=== PATIENT | female | born 1990 | race Caucasian/White ===

== ENCOUNTER 2022-04-27 15:27 | Emergency (ER) | payer OTHER ==
[2022-04-27 17:14] LABS: SARS-COV-2 RT PCR NEGATIVE (NEGATIVE)
--- NOTE | 2022-04-27 18:40 | RAD REPORT ---
EXAM DESCRIPTION: RAD - Chest Pa And Lat (2 Views) - 04/27/2022 6:13 pm CLINICAL HISTORY: COUGH COMPARISON: No comparisons FINDINGS: Lines: None. Lungs: No evidence of edema or pneumonia. Pleural: No significant pleural effusions or pneumothorax. Cardiac: The heart size is within normal limits. Mediastinum: Within normal limits. Bones: No acute fractures. Other: None IMPRESSION: No acute cardiopulmonary disease.
[2022-04-27] MEDS ORDERED: IPRATROPIUM BROM 0.5MG/2.5ML ONE (19:36)
[2022-04-27] MEDS ORDERED: ALBUTEROL 2.5 MG/3 ML NEB SOL ONE (19:36)
[2022-04-27] MEDS ORDERED: HYDROCODONE/CHLORPHEN 5 ML/OSYR ONE (19:37)
--- NOTE | 2022-04-27 19:41 | EDPHYS ---
Physician Documentation [facility] Name: Cady Peters Age: 31 yrs Sex: Female : 1990 Arrival Date: 04/27/2022 Time: 15:29 Bed DIS1 Private MD: ED Physician Beltran Abraham HPI: 04/27 16:15 This 31 yrs old Female presents to ER via Ambulatory with complaints of Cough, cp Congestion, Breathing Difficulty. 16:15 The patient or guardian reports cough, that is constant, difficulty breathing, flu cp symptoms, low-grade fever, body aches. Onset: The symptoms/episode began/occurred yesterday. Severity of symptoms: in the emergency department the symptoms are unchanged, despite home interventions. Associated signs and symptoms: Pertinent positives: fever, nausea, vomiting, Pertinent negatives: diarrhea. 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 - Social history:: Smoking status: Patient denies any tobacco usage or history of. Patient/guardian denies using alcohol. ROS: 16:20 Constitutional: Positive for body aches, chills, fever, Negative for poor PO intake. cp 16:20 Eyes: Negative for injury, pain, redness, and discharge. cp 16:20 ENT: Positive for ear pain, rhinorrhea, sore throat, Negative for drainage from ear(s), difficulty swallowing, difficulty handling secretions. 16:20 Neck: Negative for stiffness. 16:20 Cardiovascular: Negative for chest pain. 16:20 Respiratory: Positive for cough, "sounds productive", shortness of breath, at rest. 16:20 Abdomen/GI: Positive for nausea, vomiting, Negative for diarrhea, constipation. 16:20 Neuro: Positive for headache, Negative for altered mental status, dizziness, syncope, weakness. 16:20 All other systems are negative. Exam: 16:25 Constitutional: The patient appears in no acute distress, alert, awake, non-toxic, well cp developed, well nourished, obviously ill. 16:25 Head/Face: Normocephalic, atraumatic. cp 16:25 Eyes: Periorbital structures: appear normal, Conjunctiva: normal, no exudate, no injection, Lids and lashes: appear normal, bilaterally. 16:25 ENT: External ear(s): are unremarkable, Ear canal(s): are normal, clear, TM's: bulging, is not appreciated, bilaterally, erythema, is not appreciated, bilaterally, Nose: nasal drainage, that is minimal, Mouth: Lips: moist, Oral mucosa: moist, Posterior pharynx: Airway: no evidence of obstruction, patent, Tonsils: with erythema, no enlargement, no exudate, erythema, that is moderate, exudate, is not appreciated. 16:25 Neck: ROM/movement: is normal, is supple, without pain, no range of motions limitations, no meningismus. 16:25 Chest/axilla: Inspection: normal. 16:25 Cardiovascular: Rate: tachycardic, Rhythm: regular. 16:25 Respiratory: the patient does not display signs of respiratory distress, Respirations: normal, no use of accessory muscles, no retractions, labored breathing, is not present, Breath sounds: decreased breath sounds, are not appreciated, stridor, is not appreciated, + upper airway congestion. wheezing: is not appreciated. 16:25 Abdomen/GI: Exam negative for discomfort, distension, guarding, Inspection: abdomen appears normal. 16:25 Skin: no rash present. Vital Signs: 16:02 BP 123 / 62; Pulse 105; Resp 18; Temp 99.4(O); Pulse Ox 98% on R/A; Weight 97.52 kg; ld1 Height 5 ft. 4 in. (162.56 cm); Pain 6/10; 20:10 Temp 100.9(O); as6 16:02 Body Mass Index 36.90 (97.52 kg, 162.56 cm) ld1 MDM: 16:09 Patient medically screened. cp 16:30 Differential Diagnosis: Bronchitis Influenza Sinusitis Otitis Media Viral Syndrome cp Pneumonia. 19:45 Data reviewed: vital signs, nurses notes, lab test result(s), radiologic studies, plain cp films. Test interpretation: by ED physician or midlevel provider: chest xray negative for infiltrates. Counseling: I had a detailed discussion with the patient and/or guardian regarding: the historical points, exam findings, and any diagnostic results supporting the discharge/admit diagnosis, lab results, radiology results, to return to the emergency department if symptoms worsen or persist or if there are any questions or concerns that arise at home. Response to treatment: the patient's symptoms have mildly improved after treatment, and as a result, I will discharge patient. ED course: VSS. Patient appears non-toxic and no signs of respiratory distress. Will discharge to home for continued monitoring. 04/27 16:08 Order name: COVID-19/FLU A+B/RSV; Complete Time: 18:11 cp 04/27 18:11 Interpretation: INFLUENZA A POSITIVE; Reviewed. 04/27 16:08 Order name: Strep; Complete Time: 18:11 04/27 16:08 Order name: XRAY Chest Pa And Lat (2 Views); Complete Time: 18:41 04/27 18:41 Interpretation: Report reviewed. 04/27 17:13 Order name: Throat Culture EDTN 04/27 16:08 Order name: Urine Dipstick-Ancillary (obtain specimen) 04/27 16:08 Order name: Urine Test (obtain specimen) cp Administered Medications: 19:45 Drug: Tussionex Pennkinetic ER (chlorpheniramine-hydrocodone) Suspension 5 ml Route: PO;as6 20:09 Follow up: Response: No adverse reaction as6 19:45 Drug: Albuterol 2.5 mg Route: Inhalation; as6 20:09 Follow up: Response: No adverse reaction as6 19:45 Drug: AtroVENT (ipratropium) Aerosol 0.5 mg Route: Inhalation; as6 20:09 Follow up: Response: No adverse reaction as6 19:59 Drug: Motrin (ibuprofen) 600 mg Route: PO; as6 20:09 Follow up: Response: No adverse reaction as6 Disposition Summary: 04/27/22 19:40 Discharge Ordered Location: Home cp Problem: new cp Symptoms: have improved cp Condition: Stable cp Diagnosis - Influenza due to identified novel influenza A virus with other respiratory cp manifestations Followup: cp - With: Private Physician - When: 2 - 3 days - Reason: Worsening of condition Discharge Instructions: - Discharge Summary Sheet cp - Influenza, Adult cp Forms: - Medication Reconciliation Form cp - Thank You Letter cp - Antibiotic Education cp - Prescription Opioid Use cp Prescriptions: - Bromfed DM 2-30-10 mg/5 mL Oral syrup - take 10 milliliter by ORAL route every 6 hours; 180 milliliter; Refills: 0, cp Product Selection Permitted - albuterol sulfate 90 mcg/actuation Inhalation HFA aerosol inhaler - inhale 1 puff by INHALATION route every 4-6 hours; 1 Inhaler; Refills: 0, cp Product Selection Permitted - Ibuprofen 800 mg Oral Tablet - take 1 tablet by ORAL route every 8 hours As needed take with food; 30 tablet; cp Refills: 0, Product Selection Permitted - Tamiflu 75 mg Oral Capsule - take 1 tablet by ORAL route every 12 hours for 5 days; 10 tablet; Refills: 0, cp Product Selection Permitted Signatures: Dispatcher [employer] EDMS Beltran Villar PA PA cp Dibbern, Lauren, RN RN ld1 Dao Renteria RN RN as6 Corrections: (The following items were deleted from the chart) 18:11 18:11 Reviewed. cp cp
--- NOTE | 2022-04-27 19:41 | ER ---
Nurse's Notes [facility] Name: Cady Peters Age: 31 yrs Sex: Female : 1990 Arrival Date: 04/27/2022 Time: 15:29 Bed DIS1 Private MD: Diagnosis: Influenza due to identified novel influenza A virus with other respiratory manifestations Presentation: 04/27 16:00 Chief complaint: Patient states: Cough and fever X 1 day. N/V/D. Coronavirus screen: ld1 Client presents with at least one sign or symptom that may indicate coronavirus-19. Standard/surgical mask placed on the client. Ebola Screen: No symptoms or risks identified at this time. Initial Sepsis Screen: Does the patient meet any 2 criteria? No. Patient's initial sepsis screen is negative. Does the patient have a suspected source of infection? No. Patient's initial sepsis screen is negative. Risk Assessment: Do you want to hurt yourself or someone else? Patient reports no desire to harm self or others. Onset of symptoms was April 27, 2022. 16:00 Method Of Arrival: Ambulatory ld1 16:00 Acuity: LAUREN 3 ld1 Triage Assessment: 16:02 General: Appears in no apparent distress. comfortable, Behavior is calm, cooperative, ld1 appropriate for age. Pain: Denies pain. EENT: No signs and/or symptoms were reported regarding the EENT system. Neuro: Level of Consciousness is awake, alert, obeys commands, Oriented to person, place, time, situation. Cardiovascular: Capillary refill < 3 seconds Patient's skin is warm and dry. Respiratory: Airway is patent Respiratory effort is even, unlabored, Breath sounds are clear bilaterally. GI: Abdomen is flat, non-distended. : No signs and/or symptoms were reported regarding the genitourinary system. Derm: No signs and/or symptoms reported regarding the dermatologic system. Musculoskeletal: No signs and/or symptoms reported regarding the musculoskeletal system. 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 - Social history:: Smoking status: Patient denies any tobacco usage or history of. Patient/guardian denies using alcohol. Screenin:10 [facility] ED Fall Risk Assessment (Adult) Score/Fall Risk Level 0 - 2 = Low Risk. Abuse as6 screen: Denies threats or abuse. Denies injuries from another. Nutritional screening: No deficits noted. Tuberculosis screening: No symptoms or risk factors identified. Assessment: 20:11 General: pt states "I am already feeling better after that breathing treatment". as6 Vital Signs: 16:02 BP 123 / 62; Pulse 105; Resp 18; Temp 99.4(O); Pulse Ox 98% on R/A; Weight 97.52 kg; ld1 Height 5 ft. 4 in. (162.56 cm); Pain 6/10; 20:10 Temp 100.9(O); as6 16:02 Body Mass Index 36.90 (97.52 kg, 162.56 cm) ld1 ED Course: 15:29 Patient arrived in ED. mr 15:31 Beltran Villar PA is PHCP. cp 15:31 Beltran Abraham MD is Attending Physician. cp 16:02 Triage completed. ld1 16:02 Arm band placed on right wrist. ld1 16:30 Radiology exam delayed due to pt went outside for a drink. az 18:13 XRAY Chest Pa And Lat (2 Views) In Process Unspecified. EDMS 18:14 X-ray completed. Patient tolerated procedure well. Patient taken to [facility]. md2 19:32 Dao Renteria, RN is Primary Nurse. as6 20:10 No provider procedures requiring assistance completed. Patient did not have IV access as6 during this emergency room visit. 20:11 Call light in reach. as6 Administered Medications: 19:45 Drug: Tussionex Pennkinetic ER (chlorpheniramine-hydrocodone) Suspension 5 ml Route: PO;as6 20:09 Follow up: Response: No adverse reaction as6 19:45 Drug: Albuterol 2.5 mg Route: Inhalation; as6 20:09 Follow up: Response: No adverse reaction as6 19:45 Drug: AtroVENT (ipratropium) Aerosol 0.5 mg Route: Inhalation; as6 20:09 Follow up: Response: No adverse reaction as6 19:59 Drug: Motrin (ibuprofen) 600 mg Route: PO; as6 20:09 Follow up: Response: No adverse reaction as6 Medication: 20:10 VIS not applicable for this client. as6 Outcome: 19:40 Discharge ordered by . poly 20:11 Discharged to home ambulatory. as6 20:11 Condition: stable 20:11 Discharge instructions given to patient, Instructed on discharge instructions, follow up and referral plans. medication usage, Demonstrated understanding of instructions, follow-up care, medications, Prescriptions given X 4. 20:12 Patient left the ED. as6 Signatures: Dispatcher [employer] [facility] Chantel Choi mr Beltran Villar, AMBER PA Joyce Velazquez Lauren, RN RN ld1 Dao Renteria RN RN as6 Anca Nagy md2
[2022-04-27] MEDS ORDERED: IBUPROFEN 400 MG TAB ONE (19:49)
[2022-04-27] MEDS ORDERED: IBUPROFEN 200 MG TAB PO ONE (19:49)
[2022-04-27 20:16] VITALS: BP 123/62; O2SAT 98
[2022-04-27 20:17] VITALS: TEMP 100.9
== END 2022-04-27 20:12 | disposition home or self-care (01) ==
LOC: ER 15:27
DX: J10.1 Influenza due to other identified influenza virus with other respiratory manifestations (principal); Z20.822 Contact with and (suspected) exposure to COVID-19
CPT/HCPCS: 87070; 87081; 0241U; 71046; J7613; J7644; 99284